=== PATIENT | female | born 1985 | race Caucasian/White ===

== ENCOUNTER 2017-03-10 16:27 | Emergency (ER) | payer OTHER, MEDICAID ==
[~2017-03-10] VITALS: Ht 160 cm; Wt 99.8 kg
[~2017-03-10 16:27] MED LIST: BACTRIM DS TAB1 EACH PO; FLAGYL500 MG PO; FLEXERIL PO; KEFLEX500 MG PO; NOHOMEMEDICATIONS; NORCO 5-325 TA1 EACH PO; PHENERGAN 25 MG25 M1 PO; PREDNISONE 20 M20 M1 PO; ULTRAM 50MG TAB50 MG PO; XANAX; XANAX1 MG; ZANTAC 150MG T150 MG PO; ZOFRAN ODT4 MG PO; atarax
[2017-03-10 16:55] LABS: URINE BILIRUBIN NEGATIVE (Negative); URINE BLOOD 2+ (Negative); URINE CLARITY CLEAR; URINE COLOR YELLOW; URINE GLUCOSE-RANDOM NEGATIVE (Negative); URINE KETONES NEGATIVE (Negative); URINE LEUKOCYTES 1+ (Negative); URINE NITRITE NEGATIVE (Negative); URINE PROTEIN NEGATIVE (Negative); URINE SPECIFIC GRAVITY 1.015 (1.005-1.030); URINE UROBILINOGEN 0.2 E.U./dl (0.2-1.0)
[2017-03-10 17:12] LABS: CASTS None Seen /LPF (None Seen); CRYSTALS None Seen /LPF (None Seen); MUCUS 0-3 Light strn/LPF (None Seen); SQUAMOUS >10 Many /LPF (0-3); URINE RBC 3-10 Few /HPF (0-2); URINE WBC >25 Many /HPF (0-5)
[2017-03-10 17:23] LABS: ABSOLUTE BASOPHILS 0.1 thou/uL (0.0-0.2); ABSOLUTE EOSINOPHILS 0.2 thou/uL (0.0-0.7); ABSOLUTE LYMPHOCYTES 4.1 thou/uL (0.8-5.3); ABSOLUTE MONOCYTES 0.4 thou/uL (0.0-1.2); ABSOLUTE NEUTROPHILS 4.1 thou/uL (1.6-8.1); BASOPHILS 0.9 %; EOSINOPHILS 2.3 %; HEMATOCRIT 40.1 % (37.0-47.0); HEMOGLOBIN 12.7 gm/dL (12.0-15.0); LYMPHOCYTES 45.7 %; MCH 20.2 pg (26.0-34.0); MCHC 31.7 g/dL (28.0-37.0); MCV 63.8 fL (80.0-100.0); MONOCYTES 4.7 %; MPV 8.7 fl. (7.2-11.1); NUCLEATED RBCS 0 /100WBC; PLATELET COUNT* 262 thou/uL (150-400); POLYS 46.4 %; RBC 6.29 mil/uL (4.20-5.00); RDW-CV 14.8 % (10.5-14.5); WBC 8.9 thou/uL (4.0-11.0)
[2017-03-10 17:39] LABS: CALCIUM 8.8 mg/dL (8.5-10.1); CREATININE 0.8 mg/dL (0.6-1.3); POTASSIUM 3.8 mmol/L (3.5-5.1)
[2017-03-10 17:50] LABS: TOTAL BILIRUBIN 0.4 mg/dL (<0.1-1.0); TOTAL PROTEIN 7.5 g/dL (6.4-8.2)
[2017-03-10 17:56] LABS: PLATELET ESTIMATE ADEQUATE
[2017-03-10] MEDS ORDERED: NORCO 5-325 TA1 EACH PO (19:01)
[2017-03-10 19:26] VITALS: BP 133/92
== END 2017-03-10 19:27 | disposition home or self-care (01) ==
LOC: M.ERS 16:27
PROVIDERS: Nurse Practitioner Family
DX: N83.201 Unspecified ovarian cyst, right side (principal); N83.202 Unspecified ovarian cyst, left side; N92.6 Irregular menstruation, unspecified; F17.210 Nicotine dependence, cigarettes, uncomplicated; F41.9 Anxiety disorder, unspecified; Z88.8 Allergy status to other drugs, medicaments and biological substances

== ENCOUNTER 2017-09-11 22:27 | Emergency (ER) | payer OTHER, MEDICAID ==
[~2017-09-11] VITALS: Ht 160 cm; Wt 97.5 kg
[2017-09-11] MEDS ORDERED: PRENATAL VITAM1 EAC8 PO (22:45)
[2017-09-11 23:42] LABS: URINE BILIRUBIN NEGATIVE (Negative); URINE BLOOD NEGATIVE (Negative); URINE CLARITY CLEAR; URINE COLOR YELLOW; URINE GLUCOSE-RANDOM NEGATIVE (Negative); URINE KETONES NEGATIVE (Negative); URINE LEUKOCYTES-REFLEX NEGATIVE (Negative); URINE NITRITE-REFLEX NEGATIVE (Negative); URINE PROTEIN NEGATIVE (Negative); URINE UROBILINOGEN 0.2 E.U./dl (0.2-1.0)
[2017-09-11 23:54] LABS: AMP/METHAMP POSITIVE (Negative); BARBITURATES Negative (Negative); BENZODIAZEPINES POSITIVE (Negative); COCAINE Negative (Negative); METHADONE Negative (Negative); OPIATES Negative (Negative); PCP Negative (Negative); THC POSITIVE (Negative)
[2017-09-12] MEDS ORDERED: PHENERGAN 25 MG25 M1 PO (00:05)
[2017-09-12 00:24] VITALS: BP 98/51
== END 2017-09-12 00:25 | disposition home or self-care (01) ==
LOC: M.ERS 22:27
PROVIDERS: Emergency Medicine
DX: G43.909 Migraine, unspecified, not intractable, without status migrainosus (principal); M79.7 Fibromyalgia; F41.9 Anxiety disorder, unspecified; F17.210 Nicotine dependence, cigarettes, uncomplicated; Z88.6 Allergy status to analgesic agent

== ENCOUNTER 2017-09-27 18:49 | Emergency (ER) | payer OTHER, MEDICAID ==
[~2017-09-27] VITALS: Ht 160 cm; Wt 95.3 kg
[~2017-09-27 18:49] MED LIST changes: +PRENATAL VITAM1 EAC8 PO
[2017-09-27] MEDS ORDERED: PROGESTERONE100 MG PO (18:57)
[2017-09-27] MEDS ORDERED: BACTROBAN CREAM30 G1 TOP (19:54)
[2017-09-27 20:26] VITALS: BP 124/76
== END 2017-09-27 20:27 | disposition home or self-care (01) ==
LOC: M.ERS 18:49
DX: S90.464A Insect bite (nonvenomous), right lesser toe(s), initial encounter (principal); F41.9 Anxiety disorder, unspecified; M79.7 Fibromyalgia; F17.210 Nicotine dependence, cigarettes, uncomplicated; Z88.6 Allergy status to analgesic agent; W57.XXXA Bitten or stung by nonvenomous insect and other nonvenomous arthropods, initial encounter; Y93.89 Activity, other specified; Y92.89 Other specified places as the place of occurrence of the external cause; Y99.8 Other external cause status

== ENCOUNTER 2017-12-11 12:04 | Emergency (ER) | payer OTHER, MEDICAID ==
[~2017-12-11] VITALS: Ht 160 cm; Wt 99.8 kg
[~2017-12-11 12:04] MED LIST changes: +BACTROBAN CREAM30 G1 TOP; +PROGESTERONE100 MG PO
[2017-12-11 14:13] VITALS: BP 109/67
== END 2017-12-11 14:13 | disposition home or self-care (01) ==
LOC: M.ERS 12:04
DX: S93.692A Other sprain of left foot, initial encounter (principal); F17.210 Nicotine dependence, cigarettes, uncomplicated; M79.7 Fibromyalgia; F41.9 Anxiety disorder, unspecified; Z88.8 Allergy status to other drugs, medicaments and biological substances; W10.9XXA Fall (on) (from) unspecified stairs and steps, initial encounter; Y92.89 Other specified places as the place of occurrence of the external cause; Y93.89 Activity, other specified; Y99.8 Other external cause status

== ENCOUNTER 2017-12-31 01:31 | Emergency (ER) | payer OTHER, MEDICAID ==
[~2017-12-31] VITALS: Ht 160 cm; Wt 79.4 kg
[2017-12-31 02:03] LABS: URINE CLARITY CLOUDY; URINE COLOR RED
[2017-12-31 02:11] LABS: ACETEST (KETONE CONFIRMATORY) Negative (Negative); ICTOTEST (BILI CONFIRMATORY) Negative (Negative); SSA (PROTEIN CONFIRMATORY) NEGATIVE (Negative); URINE BILIRUBIN ND (Negative); URINE BLOOD ND (Negative); URINE GLUCOSE-RANDOM ND (Negative); URINE KETONES ND (Negative); URINE NITRITE-REFLEX ND (Negative); URINE PROTEIN ND (Negative); URINE REDUCING SUBSTANCE NEGATIVE (Negative); URINE UROBILINOGEN ND E.U./dl (0.2-1.0)
[2017-12-31 02:12] LABS: BACTERIA-REFLEX 1-9 Few /HPF (None Seen); CASTS None Seen /LPF (None Seen); CRYSTALS None Seen /LPF (None Seen); MUCUS 0-3 Light strn/LPF (None Seen); SQUAMOUS 0-3 Few /LPF (0-3); URINE LEUKOCYTES-REFLEX ND (Negative); URINE RBC >20 Many /HPF (0-2); URINE WBC-REFLEX None Seen /HPF (0-5)
[2017-12-31 02:17] LABS: ABSOLUTE BASOPHILS 0.1 thou/uL (0.0-0.2); ABSOLUTE EOSINOPHILS 0.3 thou/uL (0.0-0.7); ABSOLUTE LYMPHOCYTES 3.9 thou/uL (0.8-5.3); ABSOLUTE MONOCYTES 0.7 thou/uL (0.0-1.2); ABSOLUTE NEUTROPHILS 4.5 thou/uL (1.6-8.1); EOSINOPHILS 2.7 %; HEMATOCRIT 35.7 % (37.0-47.0); HEMOGLOBIN 11.4 gm/dL (12.0-15.0); LYMPHOCYTES 41.3 %; MCH 20.3 pg (26.0-34.0); MCHC 31.9 g/dL (28.0-37.0); MCV 63.8 fL (80.0-100.0); MONOCYTES 7.4 %; MPV 8.6 fl. (7.2-11.1); NUCLEATED RBCS 0 /100WBC; PLATELET COUNT* 269 thou/uL (150-400); POLYS 47.6 %; RDW-CV 15.1 % (10.5-14.5); WBC 9.5 thou/uL (4.0-11.0)
[2017-12-31 02:28] LABS: CALCIUM 9.3 mg/dL (8.5-10.1); CREATININE 0.9 mg/dL (0.6-1.3); POTASSIUM 3.3 mmol/L (3.5-5.1)
[2017-12-31 02:32] LABS: ALBUMIN 3.7 g/dL (3.4-5.0); TOTAL BILIRUBIN 0.7 mg/dL (<0.1-1.0); TOTAL PROTEIN 7.1 g/dL (6.4-8.2)
[2017-12-31] MEDS ORDERED: HYDROCODONE-AP1 EAC6 PO (03:40)
[2017-12-31] MEDS ORDERED: FLAGYL500 MG PO (03:40)
[2017-12-31 04:22] VITALS: BP 136/66
[2017-12-31 06:17] LABS: ANISOCYTOSIS 2+; HYPOCHROMASIA 2+; MICROCYTES 2+
[2017-12-31 06:18] LABS: OVALOCYTES 1+
== END 2017-12-31 04:23 | disposition home or self-care (01) ==
LOC: M.ERS 01:31
PROVIDERS: Emergency Medicine Emergency Medical Services
DX: N92.0 Excessive and frequent menstruation with regular cycle (principal); F41.9 Anxiety disorder, unspecified; M79.7 Fibromyalgia; F17.210 Nicotine dependence, cigarettes, uncomplicated; Z88.8 Allergy status to other drugs, medicaments and biological substances

== ENCOUNTER 2019-05-21 19:12 | Emergency (ER) | payer OTHER, MEDICAID ==
[~2019-05-21] VITALS: Ht 160 cm; Wt 95.3 kg
[~2019-05-21 19:12] MED LIST changes: +HYDROCODONE-AP1 EAC6 PO
[2019-05-22] MEDS ORDERED: HYDROCODON-ACE1 EAC7 PO (00:14)
[2019-05-22] MEDS ORDERED: CYCLOBENZAPRINE5 MG PO (00:14)
[2019-05-22 00:20] VITALS: BP 112/58
== END 2019-05-22 00:20 | disposition home or self-care (01) ==
LOC: M.ERS 19:12
DX: S06.0X0A Concussion without loss of consciousness, initial encounter (principal); S20.01XA Contusion of right breast, initial encounter; S30.1XXA Contusion of abdominal wall, initial encounter; S80.02XA Contusion of left knee, initial encounter; S80.01XA Contusion of right knee, initial encounter; M79.7 Fibromyalgia; F41.9 Anxiety disorder, unspecified; F17.210 Nicotine dependence, cigarettes, uncomplicated; Z88.8 Allergy status to other drugs, medicaments and biological substances; V59.49XA Driver of pick-up truck or van injured in collision with other motor vehicles in traffic accident, initial encounter; Y93.89 Activity, other specified; Y92.89 Other specified places as the place of occurrence of the external cause; Y99.8 Other external cause status